=== PATIENT | female | born 1945 | race Caucasian/White ===

== ENCOUNTER 2016-10-26 13:28 | Inpatient (IN) | payer OTHER, MEDICARE ==
[~2016-10-26] VITALS: Ht 167.6 cm; Wt 61.3 kg
[2016-10-26 14:34] VITALS: BP 136/61
[2016-10-26] MEDS ORDERED: SYNTHROID88 MCG PO (14:42)
[2016-10-26] MEDS ORDERED: HYDROCHLOROTHIA25 MG PO (14:43)
[2016-10-26] MEDS ORDERED: PRAVACHOL40 MG PO (14:44)
[2016-10-26 19:15] VITALS: BP 103/57
[2016-10-27 00:48] VITALS: BP 118/56
[2016-10-27 04:29] VITALS: BP 100/50
[2016-10-27 06:38] LABS: MCHC 37.1 G/DL (30.0-36.0); MCV 97.1 FL (83-99); MEAN PLAT.VOLUME 11.3 uM^3 (9.5-12.4); RBC DIS.WIDTH-CV 15.8 % (11.8-14.6); RBC DIS.WIDTH-SD 56.3 % (39-53); WHITE BLOOD COUNT 6.2 K/uL (4.1-10.2)
[2016-10-27 06:43] LABS: PLATELET COUNT 176 K/uL (156-360)
[2016-10-27 07:01] LABS: ALKALINE PHOSPHATASE 240 IU/L (3-129); ANION GAP 8 MEQ/L (2-14); CHLORIDE 100 MEQ/L (99-109); GFR ESTIMATE (CALCULATED) 58 mL/min/; GLUCOSE 110 mg/dL (70-99); POTASSIUM 3.1 MEQ/L (3.7-5.4); SAMPLE HEMOLYSIS CHECK 0; SAMPLE ICTERIC CHECK 3; SAMPLE LIPEMIA CHECK 0; SODIUM 133 MEQ/L (136-147); UREA NITROGEN (BUN) 16 mg/dL (9-23)
[2016-10-27 07:04] VITALS: BP 110/53
[2016-10-27 11:10] VITALS: BP 99/48
[2016-10-27 20:39] VITALS: BP 134/63
[2016-10-28 00:54] VITALS: BP 106/54
[2016-10-28 04:13] VITALS: BP 110/56
[2016-10-28 06:36] LABS: HEMATOCRIT 34.2 % (36.0-46.0); MCH 34.7 PG (29.0-34.0); MCHC 35.4 G/DL (30.0-36.0); MEAN PLAT.VOLUME 11.5 uM^3 (9.5-12.4); PLATELET COUNT 179 K/uL (156-360); RBC DIS.WIDTH-CV 15.5 % (11.8-14.6); RBC DIS.WIDTH-SD 55.6 % (39-53); RED BLOOD COUNT 3.49 M/uL (3.80-5.20); WHITE BLOOD COUNT 7.3 K/uL (4.1-10.2)
[2016-10-28 07:09] LABS: ALKALINE PHOSPHATASE 221 IU/L (3-129); ANION GAP 7 MEQ/L (2-14); CHLORIDE 102 MEQ/L (99-109); GFR ESTIMATE (CALCULATED) 58 mL/min/; GLUCOSE 128 mg/dL (70-99); POTASSIUM 3.7 MEQ/L (3.7-5.4); SAMPLE HEMOLYSIS CHECK 0; SAMPLE ICTERIC CHECK 3; SAMPLE LIPEMIA CHECK 0; SODIUM 132 MEQ/L (136-147); TOTAL BILIRUBIN 20.5 MG/DL (0.0-1.0); UREA NITROGEN (BUN) 17 mg/dL (9-23)
[2016-10-28 07:25] VITALS: BP 114/55
[2016-10-28 15:50] VITALS: BP 121/59
[2016-10-29 00:58] VITALS: BP 125/58
[2016-10-29 06:58] LABS: HEMATOCRIT 34.7 % (36.0-46.0); MCH 35.8 PG (29.0-34.0); MCHC 36.6 G/DL (30.0-36.0); MCV 97.7 FL (83-99); MEAN PLAT.VOLUME 11.2 uM^3 (9.5-12.4); PLATELET COUNT 167 K/uL (156-360); RBC DIS.WIDTH-CV 15.7 % (11.8-14.6); RED BLOOD COUNT 3.55 M/uL (3.80-5.20); WHITE BLOOD COUNT 13.9 K/uL (4.1-10.2)
[2016-10-29 07:22] LABS: ALKALINE PHOSPHATASE 210 IU/L (3-129); ANION GAP 8 MEQ/L (2-14); CHLORIDE 105 MEQ/L (99-109); GFR ESTIMATE (CALCULATED) > 59 mL/min/; POTASSIUM 3.7 MEQ/L (3.7-5.4); SAMPLE HEMOLYSIS CHECK 0; SAMPLE ICTERIC CHECK 3; SAMPLE LIPEMIA CHECK 0; SODIUM 135 MEQ/L (136-147); TOTAL BILIRUBIN 18.5 MG/DL (0.0-1.0); UREA NITROGEN (BUN) 16 mg/dL (9-23)
[2016-10-29 07:26] LABS: GLUCOSE 84 mg/dL (70-99)
[2016-10-29 08:03] LABS: DIRECT BILIRUBIN 13.7 mg/dL (0.0-0.3)
[2016-10-29 08:21] VITALS: BP 113/56
[2016-10-29 08:29] LABS: LIPASE 504 U/L (1.0-51.0)
[2016-10-29 16:01] VITALS: BP 128/61
[2016-10-29 23:24] VITALS: BP 108/52
[2016-10-30 05:34] LABS: HEMATOCRIT 32.5 % (36.0-46.0); MCHC 36.9 G/DL (30.0-36.0); MCV 97.6 FL (83-99); MEAN PLAT.VOLUME 11.5 uM^3 (9.5-12.4); PLATELET COUNT 161 K/uL (156-360); RBC DIS.WIDTH-CV 15.4 % (11.8-14.6); RED BLOOD COUNT 3.33 M/uL (3.80-5.20); WHITE BLOOD COUNT 13.9 K/uL (4.1-10.2)
[2016-10-30 06:00] LABS: EOSINOPHIL (%) 0.3 % (0-5); HEMATOLOGY COMMENT 1 SN; IMMATURE GRANULOCYTE (%) 0.8 % (0.0-0.7); IMMATURE GRANULOCYTE COUNT 0.1 K/uL; INSTRUMENT ABS NEUTROPHIL CT 11.5 K/uL; LYMPHOCYTE COUNT 1.5 K/uL (1.0-2.8); MONOCYTE (%) 5.8 % (3-12); MONOCYTE COUNT 0.8 K/uL (0-0.8); NEUTROPHIL (%) 82.2 % (45-76); NEUTROPHIL COUNT 11.5 K/uL (1.8-6.4)
[2016-10-30 07:18] LABS: ALKALINE PHOSPHATASE 187 IU/L (3-129); ANION GAP 8 MEQ/L (2-14); CHLORIDE 105 MEQ/L (99-109); GFR ESTIMATE (CALCULATED) > 59 mL/min/; GLUCOSE 60 mg/dL (70-99); SAMPLE HEMOLYSIS CHECK 0; SAMPLE ICTERIC CHECK 3; SAMPLE LIPEMIA CHECK 0; SODIUM 133 MEQ/L (136-147); TOTAL BILIRUBIN 16.2 MG/DL (0.0-1.0); UREA NITROGEN (BUN) 16 mg/dL (9-23)
[2016-10-30 07:19] LABS: POTASSIUM 2.8 MEQ/L (3.7-5.4)
[2016-10-30 07:25] VITALS: BP 114/53
[2016-10-30 09:49] LABS: LIPASE 71 U/L (1.0-51.0)
[2016-10-30 15:00] VITALS: BP 116/55
[2016-10-30 23:24] VITALS: BP 113/57
[2016-10-31 06:00] LABS: EOSINOPHIL (%) 0.4 % (0-5); EOSINOPHIL COUNT 0.1 K/uL (0-0.3); HEMATOCRIT 32.3 % (36.0-46.0); IMMATURE GRANULOCYTE (%) 0.8 % (0.0-0.7); IMMATURE GRANULOCYTE COUNT 0.1 K/uL; LYMPHOCYTE COUNT 1.4 K/uL (1.0-2.8); MCH 34.2 PG (29.0-34.0); MCV 97.9 FL (83-99); MEAN PLAT.VOLUME 11.1 uM^3 (9.5-12.4); MONOCYTE (%) 6.2 % (3-12); MONOCYTE COUNT 0.7 K/uL (0-0.8); NEUTROPHIL (%) 79.9 % (45-76); PLATELET COUNT 185 K/uL (156-360); RBC DIS.WIDTH-CV 14.9 % (11.8-14.6); WHITE BLOOD COUNT 11.3 K/uL (4.1-10.2)
[2016-10-31 06:49] LABS: ALKALINE PHOSPHATASE 207 IU/L (3-129); ANION GAP 8 MEQ/L (2-14); CHLORIDE 107 MEQ/L (99-109); GFR ESTIMATE (CALCULATED) > 59 mL/min/; GLUCOSE 58 mg/dL (70-99); POTASSIUM 3.3 MEQ/L (3.7-5.4); SAMPLE HEMOLYSIS CHECK 0; SAMPLE ICTERIC CHECK 3; SAMPLE LIPEMIA CHECK 0; SODIUM 134 MEQ/L (136-147); UREA NITROGEN (BUN) 16 mg/dL (9-23)
[2016-10-31 06:58] LABS: TOTAL BILIRUBIN 12.8 MG/DL (0.0-1.0)
[2016-10-31 07:15] VITALS: BP 114/56
[2016-10-31 13:57] VITALS: BP 103/46
[2016-11-01 00:19] VITALS: BP 119/8
[2016-11-01 06:52] LABS: EOSINOPHIL (%) 0.9 % (0-5); EOSINOPHIL COUNT 0.1 K/uL (0-0.3); HEMATOCRIT 31.3 % (36.0-46.0); IMMATURE GRANULOCYTE (%) 1.4 % (0.0-0.7); IMMATURE GRANULOCYTE COUNT 0.1 K/uL; INSTRUMENT ABS NEUTROPHIL CT 5.9 K/uL; LYMPHOCYTE COUNT 1.3 K/uL (1.0-2.8); MCH 34.5 PG (29.0-34.0); MCHC 34.8 G/DL (30.0-36.0); MCV 99.1 FL (83-99); MEAN PLAT.VOLUME 10.7 uM^3 (9.5-12.4); MONOCYTE (%) 8.2 % (3-12); MONOCYTE COUNT 0.7 K/uL (0-0.8); NEUTROPHIL (%) 72.9 % (45-76); NEUTROPHIL COUNT 5.9 K/uL (1.8-6.4); PLATELET COUNT 198 K/uL (156-360); RBC DIS.WIDTH-CV 14.6 % (11.8-14.6); RBC DIS.WIDTH-SD 53.2 % (39-53); RED BLOOD COUNT 3.16 M/uL (3.80-5.20); WHITE BLOOD COUNT 8.1 K/uL (4.1-10.2)
[2016-11-01 07:16] LABS: ALKALINE PHOSPHATASE 221 IU/L (3-129); ANION GAP 6 MEQ/L (2-14); CHLORIDE 108 MEQ/L (99-109); GFR ESTIMATE (CALCULATED) > 59 mL/min/; GLUCOSE 68 mg/dL (70-99); POTASSIUM 3.3 MEQ/L (3.7-5.4); SAMPLE HEMOLYSIS CHECK 0; SAMPLE ICTERIC CHECK 2; SAMPLE LIPEMIA CHECK 0; SODIUM 133 MEQ/L (136-147); TOTAL BILIRUBIN 10.4 MG/DL (0.0-1.0); UREA NITROGEN (BUN) 15 mg/dL (9-23)
[2016-11-01 07:30] VITALS: BP 111/59
[2016-11-01 09:52] LABS: C DIFF TOXIN POSITIVE (NEGATIVE)
[2016-11-01 10:00] LABS: PROBE CHECK PASS
[2016-11-01 15:35] VITALS: BP 100/68
[2016-11-01 23:41] VITALS: BP 111/65
[2016-11-02 07:17] LABS: ALKALINE PHOSPHATASE 227 IU/L (3-129); ANION GAP 7 MEQ/L (2-14); CHLORIDE 109 MEQ/L (99-109); GFR ESTIMATE (CALCULATED) > 59 mL/min/; GLUCOSE 82 mg/dL (70-99); POTASSIUM 3.3 MEQ/L (3.7-5.4); SAMPLE HEMOLYSIS CHECK 0; SAMPLE ICTERIC CHECK 2; SAMPLE LIPEMIA CHECK 0; SODIUM 135 MEQ/L (136-147); UREA NITROGEN (BUN) 15 mg/dL (9-23)
[2016-11-02 07:18] VITALS: BP 126/52
[2016-11-02 07:22] LABS: TOTAL BILIRUBIN 8.1 MG/DL (0.0-1.0)
[2016-11-02 17:37] VITALS: BP 134/52
[2016-11-02 23:45] VITALS: BP 139/60
[2016-11-03 07:47] VITALS: BP 118/62
[2016-11-03 08:19] LABS: ANION GAP 7 MEQ/L (2-14); CHLORIDE 111 MEQ/L (99-109); GFR ESTIMATE (CALCULATED) > 59 mL/min/; GLUCOSE 77 mg/dL (70-99); POTASSIUM 3.6 MEQ/L (3.7-5.4); SAMPLE HEMOLYSIS CHECK 0; SAMPLE ICTERIC CHECK 2; SAMPLE LIPEMIA CHECK 0; SODIUM 138 MEQ/L (136-147); UREA NITROGEN (BUN) 12 mg/dL (9-23)
[2016-11-04 00:13] VITALS: BP 106/51
[2016-11-04 08:10] VITALS: BP 130/60
[2016-11-04] MEDS ORDERED: METRONIDAZOLE500 MG PO (12:26)
[2016-11-04] MEDS ORDERED: K-DUR20 MEQ PO (12:26)
== END 2016-11-04 14:00 | disposition home or self-care (01) | DRG 420 ==
LOC: 2EAST 13:28 → ENRESERV 13:29 → 2EAST 14:07
PROVIDERS: Family Medicine; Internal Medicine Gastroenterology
DX: C24.9 Malignant neoplasm of biliary tract, unspecified (principal); K80.21 Calculus of gallbladder without cholecystitis with obstruction; A04.7 Enterocolitis due to Clostridium difficile; K85.90 Acute pancreatitis without necrosis or infection, unspecified; E87.6 Hypokalemia; D64.9 Anemia, unspecified; K31.7 Polyp of stomach and duodenum; E88.09 Other disorders of plasma-protein metabolism, not elsewhere classified; I10 Essential (primary) hypertension; E03.9 Hypothyroidism, unspecified; E78.00 Pure hypercholesterolemia, unspecified; R60.0 Localized edema; Z87.891 Personal history of nicotine dependence; Z82.49 Family history of ischemic heart disease and other diseases of the circulatory system
CPT/HCPCS: 36415; 74177; 74328; 80048; 80053; 80074 GA; 80076; 81003; 82248; 83690; 84132 91; 85025; 85027; 85651; 87081; 87086 GA; 87493; 88108; 88173; 88305; 88313; C1726; C1757; C1769; C2625; J0330; J1100; J1650; J1940; J2405; J3010; J3480; J7030